=== PATIENT | male | born 1990 | race Caucasian/White ===

== ENCOUNTER → 2018-09-27 10:49 | Outpatient (CLI) | payer OTHER, SELFPAY ==
--- NOTE | 2018-09-27 | DI.RAD.S_ITS ---
PROCEDURE: XR FOOT RT MIN 3V INDICATIONS: trauma right foot base of toes TECHNIQUE: 3 views of the foot were acquired. COMPARISON: None. FINDINGS: Bones: No fractures or dislocations. No suspicious bony lesions. First MTP joint degeneration. Marginal lucencies in the great toe interphalangeal joint Soft tissues: No tibiotalar joint effusion. Achilles tendon appears normal. IMPRESSION: No fracture. If the patient's symptoms do not improve recommend followup radiographs in 10 days to assess for healing sclerosis/occult injury. Degenerative changes as above. Marginal lucencies at the great toe interphalangeal joint. Dictated by: Parish Roach M.D. on 09/27/2018 at 13:22 Approved by: Parish Roach M.D. on 09/27/2018 at 13:29
== END ==
PROVIDERS: Visit Provider Family Medicine
DX: S99.921A Unspecified injury of right foot, initial encounter (principal)
CPT/HCPCS: 73630